=== PATIENT | female | born 2000 | race Two or more races ===

== ENCOUNTER 2024-11-13 15:38 | Emergency (ER) | payer MEDICAID, SELFPAY ==
[2024-11-13 15:56] VITALS: BP 142/81; PULSE 93; RESP 16; TEMP 37; O2SAT 98; BMI 35.5
--- NOTE | 2024-11-13 16:29 | XR_ITS ---
Examination: Complete OB ultrasound, less than 14 weeks, transabdominal Date and time of exam: November 13, 2024 1653 hours INDICATIONS: Onset of vaginal bleeding today Technique: Obstetrical ultrasound images less than 14 weeks performed via transabdominal imaging Findings: Uterus 9.0 cm with intrauterine gestational sac 1.5 cm corresponding to 6 weeks 2 days gestational age No pole, no cardiac activity Subchorionic hemorrhage 25 x 18 mm Right ovary 3.3 cm arterial flow Left ovary 3.0 cm artery flow IMPRESSION: Empty intrauterine gestational sac corresponding to 6 weeks 2 days gestational age. No pole, no cardiac activity Recommend short-term follow-up transvaginal pelvic sonography to exclude embryonic demise
--- NOTE | 2024-11-13 16:30 | EDNOTE_ITS ---
ED Female Urogenital RME/HPI General Chief complaint: Urogenital-Female Stated complaint: 8 weeks , vaginal bleeding x 1 hr. Time Seen by Provider: 11/13/24 15:42 Arrival date/time: 11/13/24 15:38 RME / HPI RME / HPI Narrative: 24-year-old female patient 3 para 1 1 about 8 weeks , came in for evaluation regarding vaginal bleeding. Patient's been having vaginal bleeding for the last 1 hour after having sex. Patient denies any pelvic pain. Patient denies any other complaints. Have not seen any [employer] for checkup Related Data Allergies Allergy/AdvReac Type Severity Reaction Status Date / Time No Known Allergies Allergy Verified 11/13/24 15:43 Review of Systems Review of Systems Narrative Review of Systems: Review of system reviewed and within normal limits except mentioned in HPI ED Exam Narrative Physical exam: VITAL SIGNS: Reviewed. GENERAL APPEARANCE: Alert and interactive, follows commands, no acute distress, HEAD AND FACE: Non-traumatic. ENT: PERRL, pink conjunctivitis, eyelid no trauma, Mucous membrane moist. NECK: Supple, nontender, no nuchal rigidity. CHEST: No tenderness, no crepitus, no paradoxical movement, no retractions. LUNGS: Clear, well ventilated, symmetric, no rales, no wheezing, no ronchi, no stridor, good breath sounds bilaterally. HEART: Regular rate, regular rhythm, no murmur, no gallops. ABDOMEN: Soft, positive bowel sounds, nondistended, no guarding, nontender, no rebound, no masses, RECTAL: Deferred. GENITAL: Deferred. NEUROLOGICAL: Gross motor function intact sensory function intact, Appropriate for age. MUSCULOSKELETAL: low back nontender, full range of motion. EXTREMITIES: Nontender, full range of motion. SKIN: Color pink, dry, no rash, no lacerations, no abrasions, no contusions. LYMPHATICS: Deferred. Course Quality Measures none Orders Category Date Time Status US OB <= 14 weeks fetus Stat Exams 11/13/24 16:29 Taken ABO/RH Type Stat Lab 11/13/24 16:39 Completed Basic Metabolic Panel Stat Lab 11/13/24 16:39 Completed Beta HCG,Quantitative Stat Lab 11/13/24 16:39 Completed CBC Stat Lab 11/13/24 16:39 Completed Urinalysis Stat Lab 11/13/24 17:40 Completed Vital Signs Vital signs: Vital Signs Temperature 98.6 F 11/13/24 15:56 Pulse Rate 93 11/13/24 15:56 Respiratory Rate 16 11/13/24 15:56 Blood Pressure 142/81 H 11/13/24 15:56 Pulse Oximetry (%) 98 11/13/24 15:56 Oxygen Delivery Method Room Air 11/13/24 15:56 Urogenital - Female MDM Narrative MDM Narrative:: 24-year-old female patient 3 para 1 1 about 8 weeks , came in for evaluation regarding vaginal bleeding. Patient's been having vaginal bleeding for the last 1 hour after having sex. Patient denies any pelvic pain. Patient denies any other complaints. Have not seen any [employer] for checkup Patient's workup today came back unremarkable no sign of anemia urinalysis no UTI ultrasound showed empty gestational sac with subchorionic hemorrhage. Results discussed with the patient. Patient was advised to follow-up closely with [employer] or return to the emergency room in 3 days for repeat hCG. Patient was also advised to go pelvic rest no sex for 1 week or until cleared by [employer] Patient data External records reviewed:: None Clinical information provided by:: patient Social determinants that could affect healthcare access:: none Patient has the following chronic illnesses:: None How is presenting disease/condition affected by chronic disease/condition?: no chronic disease Evaluation data The following diagnostics were reviewed and interpreted by me:: lab results and radiology exam(s) Lab and/or radiology exams considered but not ordered:: None Interpretation Summary: See results in MDM Medications / Prescriptions Medications or Prescriptions considered but not ordered:: None Medication administrations:: None Consultations Consultation(s) initiated? (list below): No Diagnosis Urogenital Female Differential Diagnosis: other (Threatened , vaginal bleeding in , subchorionic hem) Most likely diagnosis given after review of the tests above:: Vaginal bleeding in early , subchorionic hemorrhage Admission Indicated Admission indicated?: not indicated Admission Request Was there a request for admission?: No Disposition Plan Disposition Plan: Discharge Discharge Attestation Discharge Attestation: The patient was given an opportunity to ask questions and understood the discharge instructions. Discharge instructions specifically effects, indications for sooner follow up or return to the emergency department, and the expected course of current diagnosis. Patient condition: Stable Discharge Plan Plan Patient Disposition: HOME (Self Care) Disposition Comment: Stable Prescriptions/Referrals Referrals: Silverio Mcgill MD [Primary Care Provider] - In 1 week Problem List Clinical Impression: Vaginal bleeding affecting early , Subchorionic hemorrhage Patient/Caregiver Discharge Instructions Education Materials: Bleeding During Early Additional Instructions: Thank you for the opportunity for serving you today. You are stable for discharged . You are advised to: Follow-up with your PCP in 1 to 2 days Return to ED for worsening of symptoms Increase oral fluids Pelvic rest no sex provided currently cleared by [employer] Print Language: Swedish Stand Alone Forms: Jordyn Award Info., Patient Portal Info Letter
[2024-11-13 16:49] LABS: Basophils % (Auto) 1 % (0-2.5); Eosinophils # (Auto) 0.1 Thou/mm3 (0.0-0.5); Eosinophils % (Auto) 2 % (0-10); Hematocrit 35.8 % (36.0-46.0); Hemoglobin 12.8 g/dL (12.0-16.0); Immature Granulocytes % (Auto) 0 % (0-0); Immature Granulocytes Auto 0.01 Thou/mm3 (0.00-0.00); Lymphocytes # (Auto) 2.4 Thou/mm3 (1.0-4.8); Lymphocytes % (Auto) 40 % (10-50); Mean Corpuscular HGB Conc 35.8 g/dl (31.0-37.0); Mean Corpuscular Hemoglobin 29.1 pg (25.0-35.0); Mean Corpuscular Volume 81 fL (80-100); Monocytes # (Auto) 0.4 Thou/mm3 (0.0-0.8); Monocytes % (Auto) 6 % (0-12); Neutrophils # (Auto) 3.1 Thou/mm3 (1.8-7.7); Neutrophils % (Auto) 51 % (37-80); Nucleated Red Blood Cell % 0 /100 WBC (0); Platelet Count 225 Thou/mm3 (140-440); RDW Standard Deviation 37.6 fL (36.4-46.3)
[2024-11-13 17:09] LABS: Anion Gap 8 (7-16); BUN/Creatinine Ratio 15 Ratio (12-20); Blood Urea Nitrogen 9 mg/dL (9-23); Calcium 9.5 mg/dL (8.3-10.6); Carbon Dioxide 25.2 mMol/L (20.0-31.0); Chloride 106 mMol/L (98-107); Creatinine (Component) 0.6 mg/dL (0.6-1.3); Estimated Creatinine Clearance 170.8 mL/min (>60); Glucose 121 mg/dL (74-106); Osmolality,Calculated 277 (275-295); Potassium 4.3 mMol/L (3.4-5.1); Sodium 139 mMol/L (136-145); eGFR > 60 See Note
[2024-11-13 17:48] LABS: Beta HCG,Quantitative 12927 mIU/mL (<5.0)
[2024-11-13 18:00] LABS: Collection Type, Urine Clean Catch
[2024-11-13 18:15] LABS: Bacteria,Urine 1+; Bilirubin,Urine Negative (Negative); Blood,Urine 1+ (Negative); Clarity,Urine Turbid (Clear/Hazy); Color,Urine Yellow (Lt Yel-Yel); Glucose, Urine Negative (Negative); Ketones,Urine Negative (Negative); Leukocyte Esterase,Urine Negative (Negative); Nitrite,Urine Negative (Negative); PH,Urine 6.5 (5.0-7.0); Protein,Urine Trace (Neg - Trace); RBC,Urine 10 /hpf (0-3); Specific Gravity,Urine 1.026 (1.001-1.035); Squamous Epithelial Cell,Urine 2 /hpf (0-5); Urobilinogen,Urine Negative mg/dL (0.0-1.0); WBC,Urine 2 /hpf (0-5)
[2024-11-13 19:32] VITALS: BP 126/76; PULSE 100; RESP 16; TEMP 36.8; O2SAT 98
== END 2024-11-13 19:33 | disposition home or self-care (01) ==
PROVIDERS: Nurse Practitioner Family; Emergency Provider Emergency Medicine; PCP Family Medicine
DX: O20.9 Hemorrhage in early pregnancy, unspecified (principal); Z3A.08 8 weeks gestation of pregnancy
CPT/HCPCS: 36415; 76801; 80048; 81001; 84702; 85025; 86900; 86901; 99284